=== PATIENT | male | born 1970 | race Caucasian/White ===

== ENCOUNTER 2023-10-19 08:15 | Outpatient (POV) | payer MEDICARE, SELFPAY ==
[2023-10-19 08:47] VITALS: BP 129/75; PULSE 65; RESP 18; O2SAT 94; BMI 41.5
--- NOTE | 2023-10-19 09:14 | XR_ITS ---
FINAL REPORT CLINICAL HISTORY: LBP COMPARISON: None FINDINGS: AP, lateral, and oblique views of the lumbar spine were obtained. There is no acute fracture or acute malalignment. Vertebral body height is preserved. . No acute paraspinal abnormality is identified. There is moderate facet osteoarthropathy in the lower lumbar spine. IMPRESSION: Moderate facet osteoarthropathy of the lower lumbar spine. Otherwise unremarkable lumbar spine series. Reviewed, Interpreted and Dictated by Massimo Griggs MD Transcribed by Oriana Espinal Authenticated and [facility]
--- NOTE | 2023-10-19 10:24 | A.OFFVIS_ITS ---
HPI Data of Consult Patient: new to practice Consult date: 10/19/23 Requesting Physician: Shala Wright APRN Primary Care Provider: Gladys Schmidt Consult Narrative Reason for consult: Low back pain, left leg pain History of present illness: Mr. Brennan is a 53 year old male who presents today as a new patient. He is a referral from Gladys Schmidt's office. Today he rates his pain a 4 out of 10 however he states that the pain will get much worse as he increases his activity. Patient does describe this as an aching, throbbing sensation with numbness and tingling into his lower extremity. He does state the pain is worse with certain activities and that it can be positional. He does states that laying down seems to aggravate his pain symptoms. He does state this is all been going on for at least 15 years related to a work injury. He does state the pain interferes with his ability perform activities of daily living such as cooking and cleaning. Patient does state he has tried [id number] Tylenol and ibuprofen along with heat and ice and topicals with minimal relief. Patient has been prescribed pain medication in the past including Lortab that does help some. Patient states that he did see a neurosurgeon years ago and that they did want to do surgery for him however due to his weight they told him that he would have to lose significant amount before they could even offer this as an option. Patient does also state that he did go to a previous pain clinic in [place] and that they did suggest injections however they could not guarantee how much improvement so he did not proceed forward with this plan of care. Patient denies any recent lumbar imaging. Patient states he has had physical therapy in the past however this made his pain worse. Patient does have a significant heart history and has to avoid NSAIDs. Patient denies being on any blood thinners other than a baby aspirin. He is currently managed with [place] 5 mg twice a day from an outside provider. He denies any side effects from this medication. His Erorl has been reviewed and is appropriate. CC: Shala Wright APRN [facility] Disclaimer: The information contained in this section may have been updated after the patient was seen, as this information can be updated by other users. Medical History (Updated 10/19/23 @ 10:27 by Shala Wright APRN) CAD (coronary artery disease) Afib Depression Arrhythmia HTN (hypertension) Anxiety Hypothyroidism GERD (gastroesophageal reflux disease) Vitamin D deficiency Rheumatoid arthritis JAVIER (obstructive sleep apnea) Diabetes Surgical History (Updated 10/19/23 @ 08:26 by Galina Steele RN) Hx of CABG H/O gastric sleeve H/O hernia repair H/O colonoscopy Family History (Updated 10/19/23 @ 08:25 by Galina Steele RN) Other BPH (benign prostatic hyperplasia) Diabetes Heart attack Heart disease Hypertension Tumor Social History (Updated 10/19/23 @ 08:41 by Galina Steele RN) Smoking Status: Never smoker alcohol intake: never current occupational status: retired Travel in the last 8 weeks: None Review of Systems Review of Systems Review of systems:: pertinent systems reviewed and negative unless documented below Review of systems (narrative): Review of Systems: General: No recent weight changes, no fever, no sleep disturbances Respiratory: No cough, no shortness of air, no recurring pulmonary infections Cardiovascular/peripheral vascular: No chest pain, no palpitations, no edema, no shortness of breath Gastrointestinal: No new onset incontinence, normal bowel movements reported Genitourinary: No new onset incontinence Musculoskeletal: Low back pain, left leg pain Psychiatric: [Normal mood/affect] Neurological: [Denies weakness in extremities], [denies balance issues] Meds Home Medications and Allergies Home Medications Medication Instructions Recorded Confirmed Type citalopram 20 mg tablet 20 mg PO DAILY MOOD 10/19/23 10/19/23 History cyclobenzaprine 10 mg tablet 10 mg PO TID Pain 10/19/23 10/19/23 History dapagliflozin propanediol 10 mg 10 mg PO DAILY Diabetes 10/19/23 10/19/23 History tablet (Farxiga) hydrocodone 5 mg-acetaminophen 325 1 tab PO BID Pain 10/19/23 10/19/23 History mg tablet insulin aspart U-100 100 unit/mL 150 unit SQ DAILY Diabetes 10/19/23 10/19/23 History subcutaneous solution (Novolog U-100 Insulin aspart) levothyroxine 200 mcg tablet 200 mcg PO DAILY THYROID 10/19/23 10/19/23 History metformin 1,000 mg tablet 1,000 mg PO BID Diabetes 10/19/23 10/19/23 History metoprolol succinate 25 mg 25 mg PO DAILY BLOOD PRESSURE 10/19/23 10/19/23 History tablet,extended release 24 hr omeprazole 40 mg capsule,delayed 40 mg PO DAILY 10/19/23 10/19/23 History release rosuvastatin 20 mg tablet 20 mg PO DAILY Cholesterol 10/19/23 10/19/23 History New Prescriptions to Start Prescriptions: Allergies Allergy/AdvReac Type Severity Reaction Status Date / Time Penicillins Allergy Verified 10/19/23 08:22 Objective Vital signs: Pulse Resp BP Pulse Ox O2 Del Method 65 18 129/75 94 L Room Air 10/19/23 08:47 10/19/23 08:47 10/19/23 08:47 10/19/23 08:47 10/19/23 08:47 Narrative: Physical Exam: General: Alert and oriented x3, no acute distress, pleasant and cooperative Lungs: Respirations even and unlabored, symmetrical chest expansion Eyes: PERRL Musculoskeletal: Flexion and extension of lumbar [spine] somewhat guarded secondary to pain, [antalgic gait noted] Neurological: Speech clear, no gross sensory deficit Assessment and Plan *Assessment and plan (1) Low back pain: Status: Acute Qualifiers: Chronicity: chronic Back pain laterality: bilateral Sciatica presence: without sciatica Qualified Code(s): M54.50 - Low back pain, unspecified; G89.29 - Other chronic pain Category: Medical Code(s): M54.50 - Low back pain, unspecified (2) Left leg pain: Status: Acute Category: Medical Code(s): M79.605 - Pain in left leg (3) Lumbar radiculopathy: Status: Acute Category: Medical Code(s): M54.16 - Radiculopathy, lumbar region (4) Chronic pain syndrome: Status: Acute Category: Medical Code(s): G89.4 - Chronic pain syndrome Plan Patient is experiencing significant pain in his low back with radiating symptoms to his left leg. Patient did have limited range of motion of his lumbar spine during today's visit. I have discussed with patient in future he may benefit from a transforaminal epidural steroid injection. Due to the fact the patient has not had any updated imaging we will order x-ray and MRI of his lumbar spine without contrast. Patient will follow-up with clinic in 1 month for reevaluation of symptoms and plan of care. Patient has been instructed to contact the clinic with any concerns before the next appointment. Dr. Adler has reviewed this note and agrees with this plan of care. This note was dictated using voice recognition software and make contain errors or omissions.
== END 2023-10-19 23:59 ==
PROVIDERS: PCP Family Medicine; Visit Provider Nurse Practitioner Family
DX: M54.50 Low back pain, unspecified (principal); M79.605 Pain in left leg; M54.16 Radiculopathy, lumbar region; G89.4 Chronic pain syndrome
CPT/HCPCS: 72110; 99202; G0463

== ENCOUNTER 2023-11-02 11:51 | Outpatient (CLI) | payer MEDICARE, SELFPAY ==
--- NOTE | 2023-11-02 12:00 | MR_ITS ---
FINAL REPORT TECHNIQUE: Multiplanar MR without contrast CLINICAL HISTORY: . FINDINGS: Sagittal images show normal vertebral height. Minimal anterolisthesis at L5-S1 is noted attributed to facet arthropathy. Remaining alignment is normal. Marrow signal pattern is unremarkable. L1-2: Unremarkable L2-3: Unremarkable L3-4: Unremarkable L4-5: Unremarkable L5-S1: Minimal annular disc bulge. Mild facet arthropathy. No central canal stenosis. Mild bilateral neural foraminal narrowing. IMPRESSION: Mild degenerative changes L5-S1 as above Authenticated and ERN
== END 2023-11-02 23:59 | disposition home or self-care (01) ==
PROVIDERS: PCP Family Medicine; Visit Provider Nurse Practitioner Family
DX: M54.50 Low back pain, unspecified (principal)
CPT/HCPCS: 72148; 76376

== ENCOUNTER 2023-11-17 08:01 | Outpatient (POV) | payer MEDICARE, SELFPAY ==
[2023-11-17 08:34] VITALS: BP 115/54; PULSE 61; RESP 18; O2SAT 98; BMI 43.6
--- NOTE | 2023-11-17 08:50 | A.OFFVIS_ITS ---
[facility] Pain Management SOAP Note Subjective:: Patient is a pleasant 53-year-old male who presents today for lumbar MRI follow- up. Today he rates his pain a 6 out of 10. Patient denies any new trauma or injury. He does state he continues to have chronic low back pain that does go down into his left leg. Patient denies any symptoms into his right. He does also state that he has mid back pain. Patient does describe his overall low back pain as an aching, throbbing sensation with numbness and tingling down into the left extremity. He does state the pain interferes with his ability perform activities of daily living such as cooking and cleaning. Patient has tried and failed conservative therapies including oral medications, heat and ice, topicals, prior physical therapy that aggravated his symptoms and made them worse as well as continued at home exercising and stretching for longer than 6 weeks. Patient is prescribed [place] from outside provider. His Errol has been reviewed and is appropriate. Review of Systems: General: No recent weight changes, no fever, no sleep disturbances Respiratory: No cough, no shortness of air, no recurring pulmonary infections Cardiovascular/peripheral vascular: No chest pain, no palpitations, no edema, no shortness of breath Gastrointestinal: No new onset incontinence, normal bowel movements reported Genitourinary: No new onset incontinence Musculoskeletal: Low back pain, left leg pain Psychiatric: [Normal mood/affect] Neurological: [Denies weakness in extremities], [denies balance issues] Objective:: Physical Exam: General: Alert and oriented x3, no acute distress, pleasant and cooperative Lungs: Respirations even and unlabored, symmetrical chest expansion Eyes: PERRL Musculoskeletal: Flexion and extension of lumbar [spine] somewhat guarded secondary to pain, [antalgic gait noted] positive left leg raise with decreased sensation to light touch and decreased reflexes Neurological: Speech clear, no gross sensory deficit Assessment:: Degenerative disc disease of lumbar spine with lumbar radiculopathy symptoms, left leg pain, mid back pain Plan:: Patient is experiencing worsening pain throughout his low back and left leg with numbness and tingling. Patient has limited range of motion of his lumbar spine with a positive left leg raise and decreased sensation light touch and decreased reflexes. I have discussed with the patient that I do believe he would still benefit from a left transforaminal epidural steroid injection. Risk and benefits were discussed with the patient and he would like to proceed forward with this plan of care. Patient is not on any blood thinners. Patient has continued to try at home exercising and stretching with minimal relief and has failed conservative measures. We will schedule the patient for a left transforaminal epidural steroid injection L5-S1 under fluoroscopy. Patient has been instructed to contact the clinic with any concerns before the next appointment. Dr. Adler has reviewed this note and agrees with this plan of care. This note was dictated using voice recognition software and make contain errors or omissions. [facility] Disclaimer: The information contained in this section may have been updated after the patient was seen, as this information can be updated by other users. Medical History CAD (coronary artery disease) Afib Depression Arrhythmia HTN (hypertension) Anxiety Hypothyroidism GERD (gastroesophageal reflux disease) Vitamin D deficiency Rheumatoid arthritis JAVIER (obstructive sleep apnea) Diabetes Surgical History Hx of CABG H/O gastric sleeve H/O hernia repair H/O colonoscopy Family History Other BPH (benign prostatic hyperplasia) Diabetes Heart attack Heart disease Hypertension Tumor Social History Smoking Status: Never smoker alcohol intake: never current occupational status: other Travel in the last 8 weeks: None
== END 2023-11-17 23:59 | disposition home or self-care (01) ==
LOC: SC.PAIN 08:02
PROVIDERS: PCP Family Medicine; Visit Provider Nurse Practitioner Family
DX: M51.16 Intervertebral disc disorders with radiculopathy, lumbar region (principal); M79.605 Pain in left leg
CPT/HCPCS: 99212; G0463

== ENCOUNTER 2023-12-06 06:59 | Day surgery (SDC) | payer MEDICARE, SELFPAY ==
[2023-12-06 08:25] VITALS: BP 104/60; PULSE 67; RESP 18; TEMP 36.7; O2SAT 97; BMI 41.5
[2023-12-06] MEDS: LIDOCAINE 1% 5ML PF VIAL 5 ML (08:48)
[2023-12-06 08:49] VITALS: BP 131/78; PULSE 74; RESP 18; O2SAT 93
[2023-12-06 08:50] VITALS: BP 113/57; BP 131/78; PULSE 64; PULSE 74; RESP 18; O2SAT 93; O2SAT 98
--- NOTE | 2023-12-06 08:54 | P.PCN_ITS ---
Procedure Date: 12/06/23 Time: 08:50 Anesthesiologist:: Dennis Zapata CRNA Complications:: None Pre-procedure Diagnosis:: Degenerative disc lumbar spine multilevels. Lumbar radiculopathy. Lumbar disc bulge L5-S1. Post-procedure Diagnosis:: Same. Indications for Procedure:: Patient is a very pleasant 53-year-old male comes our clinic today for a left transforaminal L5-S1 epidural steroid injection. Patient reports low back pain left greater than right. Left hip and leg radicular symptoms to the foot. He rates his pain 7/10. Patient states pain intensifies with ambulation. Procedure Details:: Details of the procedure explained to the patient. The patient taken procedure and placed in the prone position on the fluoroscopy table. The area over the lumbar spine was cleansed using chlorhexidine's cleansing solution. With fluoro scopy guidance using a 22-gauge 3-1/2 inch spinal needle the upper one third of the left L5-S1 foramen was accessed with ease. Needle position was confirmed in the lateral view. At this time after negative aspiration 2 cc of a solution containing 1% lidocaine and 40 mg of Depo-Medrol was injected. Needle was removed. Band-Aid applied. Patient tolerated procedure without difficulty. There are no complications. Plan and Disposition:: Patient was discharged without incident.
== END 2023-12-06 08:50 | disposition home or self-care (01) ==
PROVIDERS: PCP Family Medicine; Visit Provider Nurse Anesthetist, Certified Registered
DX: M51.16 Intervertebral disc disorders with radiculopathy, lumbar region (principal); M51.26 Other intervertebral disc displacement, lumbar region
CPT/HCPCS: 64483; J1010

== ENCOUNTER 2023-12-21 07:58 | Outpatient (POV) | payer MEDICARE, SELFPAY ==
[2023-12-21 08:34] VITALS: BP 124/64; PULSE 61; RESP 18; O2SAT 95; BMI 41.5
--- NOTE | 2023-12-21 08:49 | A.OFFVIS_ITS ---
[facility] Pain Management SOAP Note Subjective:: Patient is a pleasant 53-year-old male who presents today for follow-up of left transforaminal epidural steroid injection L5-S1 on 12/06/2023. Today he rates his pain a 7 out of 10. Patient does state from the time he left till that night he had barely any pain and then it did not really work well however as soon as the numbing medication wore off he felt like his pain came immediately back. Patient does describe his pain throughout his low back with radiating symptoms down into his left leg. Patient does state that days like today with the high humidity seems like his arthritis is flared. Patient does state as well that the epidural injection did actually increase his glucose for a few days. He states he normally runs around 160 and it did spike it to 260-400. Patient states that the [place] he is prescribed from an outside provider does not do much to improve his overall symptoms. His Errol has been reviewed and is appropriate. Review of Systems: General: No recent weight changes, no fever, no sleep disturbances Respiratory: No cough, no shortness of air, no recurring pulmonary infections Cardiovascular/peripheral vascular: No chest pain, no palpitations, no edema, no shortness of breath Gastrointestinal: No new onset incontinence, normal bowel movements reported Genitourinary: No new onset incontinence Musculoskeletal: Low back pain, left leg pain Psychiatric: [Normal mood/affect] Neurological: [Denies weakness in extremities], [denies balance issues] Objective:: Physical Exam: General: Alert and oriented x3, no acute distress, pleasant and cooperative Lungs: Respirations even and unlabored, symmetrical chest expansion Eyes: PERRL Musculoskeletal: Flexion and extension of lumbar [spine] somewhat guarded secondary to pain, [antalgic gait noted] Neurological: Speech clear, no gross sensory deficit Assessment:: Degenerative disc disease of lumbar spine with lumbar radiculopathy symptoms, left leg pain, mid back pain Plan:: I did discuss with the patient that in future he may benefit from a straightforward approach to the lumbar epidural however at this time he would like to wait. I did certified alcohol and drug counselor the patient that we would continue to monitor his glucose in this times. I will order the patient a compounded cream. We did also discuss possible anti-inflammatory medication however the after discussion with the patient it was found he has a heart history after discussion with the patient it was found he has a heart history. I did certified alcohol and drug counselor the patient for this reason it is not recommended that he take any anti-inflammatories on a regular basis and that he is more limited to the acetaminophen products. Patient acknowledges understanding. Patient will return to clinic in 1 month for reevaluation of symptoms and plan of care. Patient has been instructed to contact the clinic with any concerns before the next appointment. Dr. Adler has reviewed this note and agrees with this plan of care. This note was dictated using voice recognition software and make contain errors or omissions. [facility] Disclaimer: The information contained in this section may have been updated after the patient was seen, as this information can be updated by other users. Medical History CAD (coronary artery disease) Afib Depression Arrhythmia HTN (hypertension) Anxiety Hypothyroidism GERD (gastroesophageal reflux disease) Vitamin D deficiency Rheumatoid arthritis JAVIER (obstructive sleep apnea) Diabetes Surgical History Hx of CABG H/O gastric sleeve H/O hernia repair H/O colonoscopy Family History Other BPH (benign prostatic hyperplasia) Diabetes Heart attack Heart disease Hypertension Tumor Social History Smoking Status: Never smoker alcohol intake: never current occupational status: unemployed Travel in the last 8 weeks: None
== END 2023-12-21 23:59 | disposition home or self-care (01) ==
LOC: SC.PAIN 07:59
PROVIDERS: PCP Family Medicine; Visit Provider Nurse Practitioner Family
DX: M51.16 Intervertebral disc disorders with radiculopathy, lumbar region (principal); M79.605 Pain in left leg
CPT/HCPCS: 99212; G0463

== ENCOUNTER 2024-02-20 07:24 | Outpatient (POV) | payer MEDICARE, SELFPAY ==
[2024-02-20 08:21] VITALS: BP 139/70; PULSE 72; RESP 18; O2SAT 97; BMI 41.7
--- NOTE | 2024-02-20 08:56 | A.OFFVIS_ITS ---
[facility] Disclaimer: The information contained in this section may have been updated after the patient was seen, as this information can be updated by other users. Medical History (Updated 02/20/24 @ 08:59 by Shala Wright APRN) CAD (coronary artery disease) Afib Depression Arrhythmia HTN (hypertension) Anxiety Hypothyroidism GERD (gastroesophageal reflux disease) Vitamin D deficiency Rheumatoid arthritis JAVIER (obstructive sleep apnea) Diabetes Surgical History Hx of CABG H/O gastric sleeve H/O hernia repair H/O colonoscopy Family History Other BPH (benign prostatic hyperplasia) Diabetes Heart attack Heart disease Hypertension Tumor Social History Smoking Status: Never smoker alcohol intake: never current occupational status: unemployed Travel in the last 8 weeks: None PM Subjective & Objective Subjective Subjective:: Patient is a pleasant 53-year-old male who presents today for follow-up. Today he rates his pain a 6 out of 10. Patient denies any new trauma or injury. He does state that he is just continue to have pain all over and does still have pain in his low back and legs. Patient did previously have a transforaminal epidural that did significantly help however only lasted as long as the numbing agent was active. Patient does state that he continues to have chronic pain and is asking whether or not possibly he can be put on Lortabs. Patient states he is currently on some from his PCP and it does okay. Patient does also state he has tried muscle relaxers of Flexeril however it caused significant drowsiness and he discontinued. Review of Systems: General: No recent weight changes, no fever, no sleep disturbances Respiratory: No cough, no shortness of air, no recurring pulmonary infections Cardiovascular/peripheral vascular: No chest pain, no palpitations, no edema, no shortness of breath Gastrointestinal: No new onset incontinence, normal bowel movements reported Genitourinary: No new onset incontinence Musculoskeletal: Low back pain Psychiatric: [Normal mood/affect] Neurological: [Denies weakness in extremities], [denies balance issues] Pain at rest (0-10 scale): 6 Objective Objective:: Physical Exam: General: Alert and oriented x3, no acute distress, pleasant and cooperative Lungs: Respirations even and unlabored, symmetrical chest expansion Eyes: PERRL Musculoskeletal: Flexion and extension of lumbar [spine] somewhat guarded secondary to pain, [antalgic gait noted] Neurological: Speech clear, no gross sensory deficit Has patient had previous pain injection?: No Conservative treatment options previously tried: Home exercise plan Length of treatment: Longer than 6 weeks Meds Home Medications and Allergies Home Medications ?Medication ?Instructions ?Recorded ?Confirmed ?Type citalopram 20 mg tablet 20 mg PO DAILY MOOD 10/19/23 02/20/24 History cyclobenzaprine 10 mg tablet 10 mg PO TID Pain 10/19/23 02/20/24 History dapagliflozin propanediol 10 mg 10 mg PO DAILY Diabetes 10/19/23 02/20/24 History tablet (Farxiga) hydrocodone 5 mg-acetaminophen 325 1 tab PO BID Pain 10/19/23 02/20/24 History mg tablet insulin aspart U-100 100 unit/mL 150 unit SQ DAILY Diabetes 10/19/23 02/20/24 History subcutaneous solution (Novolog U-100 Insulin aspart) levothyroxine 200 mcg tablet 200 mcg PO DAILY THYROID 10/19/23 02/20/24 History metformin 1,000 mg tablet 1,000 mg PO BID Diabetes 10/19/23 02/20/24 History metoprolol succinate 25 mg 25 mg PO DAILY BLOOD PRESSURE 10/19/23 02/20/24 History tablet,extended release 24 hr omeprazole 40 mg capsule,delayed 40 mg PO DAILY 10/19/23 02/20/24 History release rosuvastatin 20 mg tablet 20 mg PO DAILY Cholesterol 10/19/23 02/20/24 History New Prescriptions to Start Prescriptions: Allergies Allergy/AdvReac Type Severity Reaction Status Date / Time Penicillins Allergy Verified 10/19/23 08:22 Assessment and Plan *Assessment and plan (1) Lumbar radiculopathy: Status: Acute Category: Medical Code(s): M54.16 - Radiculopathy, lumbar region (2) Low back pain: Status: Acute Qualifiers: Chronicity: chronic Back pain laterality: bilateral Sciatica presence: without sciatica Qualified Code(s): M54.50 - Low back pain, unspecified; G89.29 - Other chronic pain Category: Medical Code(s): M54.50 - Low back pain, unspecified (3) Degenerative disc disease, lumbar: Status: Acute Category: Medical Code(s): M51.36 - Other intervertebral disc degeneration, lumbar region Plan I did discuss with the patient in future he may benefit from additional injection therapy such as a lumbar epidural at the L5-S1 level. I have also counseled the patient that it is not necessarily her first go to of opioid medication. I will send in a 2-week dose of methocarbamol 500 mg 3 times daily as needed and have the patient follow-up back in clinic in 2 weeks. Patient does have degenerative disc with facet arthropathy at the L5-S1 level. Patient does not have a history of back surgery and at this time we will not prescribe any opioid pain medications. Patient has been instructed to contact the clinic with any concerns before the next appointment. Dr. Adler has reviewed this note and agrees with this plan of care. This note was dictated using voice recognition software and make contain errors or omissions. All injections are used with Lidocaine or Bupivacaine and Depo Medrol.
== END 2024-02-20 23:59 | disposition home or self-care (01) ==
PROVIDERS: PCP Family Medicine; Visit Provider Nurse Practitioner Family
DX: M54.50 Low back pain, unspecified; G89.29 Other chronic pain; M51.16 Intervertebral disc disorders with radiculopathy, lumbar region; I25.10 Atherosclerotic heart disease of native coronary artery without angina pectoris; I10 Essential (primary) hypertension; Z79.899 Other long term (current) drug therapy
CPT/HCPCS: 99212; G0463